=== PATIENT | female | born 1985 | race African-American/Black ===

== ENCOUNTER 2019-07-04 16:45 | Emergency (ER) | payer MEDICAID, OTHER ==
[~2019-07-04] VITALS: Ht 162.6 cm; Wt 52.2 kg
[2019-07-04 17:00] VITALS: BP 94/58
--- NOTE | 2019-07-04 17:00 | NUR ---
ED Nurse Note: Patient brought in to ER by ambulance from custodial due to low blood pressure and RLQ abdominal pain 08/05. pt aao x4 and ambulatory. skin clean and intact. cooperative but restless and moaning for RLQ severe abdominal pain. per pt, she has her apartment set up but meanwhile she is staying at custodial. no dishevel appearance noted. well groomed and clean. pt stated "I am not a homeless. it is complicated but I got my apartment set up I have paid everything. I am staying at custodial until the move in date." no acute distress noted at this time. pt is in gown and on credit associate.
--- NOTE | 2019-07-04 17:07 | Emergency Room Report ---
History of Present Illness General Chief Complaint: Abdominal Pain Source: Patient Present Illness HPI Disclaimer: Please note that this report is being documented using DRAGON technology. This can lead to erroneous entry secondary to incorrect interpretation by the dictating instrument. HPI: 33-year-old otherwise healthy female presents for evaluation of abdominal pain. Symptoms began yesterday. She noted pain in the right lower quadrant as sharp and stabbing and nonradiating. Noted nausea without vomiting. Denies diarrhea, dysuria, hematuria, vaginal bleeding, vaginal discharge. She feels fevers but has no objective temperature readings. Denies flank pain. No prior history of abdominal surgery. Denies the possibility of . LMP 4 days ago according to patient. Has not taken any medication prior to arrival. PMH: Denies PSH: Denies Allergies: Denies Social Hx: Current smoker. Allergies: Coded Allergies: No Known Allergies (Unverified , 07/04/19) Patient History Last Menstrual Period: 06/30/19 Nursing Documentation-PMH Past Medical History: No Stated History Review of Systems All Other Systems: negative except mentioned in HPI Physical Exam Vital Signs Date Time Temp Pulse Resp B/P (MAP) Pulse Ox O2 Delivery O2 Flow Rate FiO2 07/04/19 16:45 100.0 112 18 94/58 (70) 99 Room Air General: Awake and alert, appears uncomfortable, afebrile HEENT: NC/AT. EOMI. Cardiovascular: Tachycardic. S1 and S2 normal. No murmur appreciated Resp: Normal work of breathing. No cough, wheezing or crackles appreciated Abdomen: Abdomen is soft, nondistended. Significant tenderness in the right lower quadrants with palpation. No rebound. Rovsing negative. No masses appreciated. Skin: Intact. No abrasions, laceration or rash over the exposed skin MSK: Normal tone and bulk. Moving all extremities. No obvious deformity. Neuro: Awake and alert. Mentating appropriately. Back: CVA tenderness right side, negative on left Medical Decision Making Diagnostic Impression: Primary Impression: Pyelonephritis ER Course 33-year-old female presents for evaluation of 1 day worsening abdominal pain. [place] includes was not limited to appendicitis, ovarian cyst, ectopic , urinary tract infection, pyelonephritis, nephrolithiasis, cholecystitis, biliary colic, gastritis, pancreatitis, bowel obstruction. Given the patient's appearance of physical exam must rule out appendicitis. Will obtain CT scan of the abdomen pelvis, broad lab work, start IV fluids, antiemetics and pain medication. Laboratory Tests Test 07/04/19 17:00 07/04/19 18:00 Urine Color Pale yellow Urine Appearance Clear Urine pH 7 (4.5-8.0) Urine Specific [place] 1.005 (1.005-1.035) Urine Protein 1+ (NEGATIVE) H Urine Glucose (UA) Negative (NEGATIVE) Urine Ketones Negative (NEGATIVE) Urine Blood 3+ (NEGATIVE) H Urine Nitrite Positive (NEGATIVE) H Urine Bilirubin Negative (NEGATIVE) Urine Urobilinogen 4 MG/DL (0.0-1.0) H Urine Leukocyte Esterase 2+ (NEGATIVE) H Urine RBC 5-10 /HPF (0 - 2) H Urine WBC 5-10 /HPF (0 - 2) H Urine Squamous Epithelial Cells Few /LPF (NONE/OCC) Urine Bacteria Moderate /HPF (NONE) H Urine HCG, Qualitative Negative (NEGATIVE) Sodium Level 134 MMOL/L (136-145) L Potassium Level 4.2 MMOL/L (3.5-5.1) Chloride Level 102 MMOL/L (98-107) Carbon Dioxide Level 25 MMOL/L (21-32) Anion Gap 7 mmol/L (5-15) Blood Urea Nitrogen 8 mg/dL (7-18) Creatinine 1.0 MG/DL (0.55-1.30) Estimate Glomerular Filtration Rate > 60 mL/min (>60) Glucose Level 101 MG/DL (74-106) Calcium Level 8.5 MG/DL (8.5-10.1) Total Bilirubin 0.7 MG/DL (0.2-1.0) Aspartate Amino Transferase (AST) 20 U/L (15-37) Alanine Aminotransferase (ALT) 10 U/L (12-78) L Alkaline Phosphatase 48 U/L (46-116) Total Protein 6.8 G/DL (6.4-8.2) Albumin 3.1 G/DL (3.4-5.0) L Globulin 3.7 g/dL Albumin/Globulin Ratio 0.8 (1.0-2.7) L Lipase 79 U/L (73-393) White Blood Count 13.3 K/UL (4.8-10.8) H Red Blood Count 3.61 M/UL (4.20-5.40) L Hemoglobin 11.5 G/DL (12.0-16.0) L Hematocrit 32.1 % (37.0-47.0) L Mean Corpuscular Volume 89 FL (80-99) Mean Corpuscular Hemoglobin 31.9 PG (27.0-31.0) H Mean Corpuscular Hemoglobin Concent 36.0 G/DL (32.0-36.0) Red Cell Distribution Width 10.7 % (11.6-14.8) L Platelet Count 118 K/UL (150-450) L Mean Platelet Volume 7.4 FL (6.5-10.1) Neutrophils (%) (Auto) 75.1 % (45.0-75.0) H Lymphocytes (%) (Auto) 14.2 % (20.0-45.0) L Monocytes (%) (Auto) 9.8 % (1.0-10.0) Eosinophils (%) (Auto) 0.1 % (0.0-3.0) Basophils (%) (Auto) 0.7 % (0.0-2.0) CT/MRI/US Diagnostic Results CT/MRI/US Diagnostic Results : Impression Preliminary Findings Only See Final Report For Complete Findings CT ABDOMEN & PELVIS With Contrast: No mucosal inflammatory changes along the course of the GI tract. No obstruction. The appendix is not visualized however there are no secondary signs of acute appendicitis. Trace fat stranding around the right kidney. No obstructive uropathy. There is a region of low attenuation within the right upper pole which is not consistent with a simple cyst. Pyelonephritis could cause this appearance in the appropriate clinical setting. Correlate with UA. Nonobstructing stones bilaterally. Unremarkable appearance of the remainder of the solid organs. Radiologist: Fadi Marrufo MD Study ready at 19:09 and initial results transmitted at 19:24 Reevaluation Time: 20:34 Last Vital Signs Date Time Temp Pulse Resp B/P (MAP) Pulse Ox O2 Delivery O2 Flow Rate FiO2 07/04/19 16:45 100.0 112 18 94/58 (70) 99 Room Air Reevaluation Impression Lab work indicate an acute urinary tract infection and the patient was treated with 1 g of ceftriaxone. She continues to receive IV fluids. Tachycardia resolved. Patient is afebrile. She will require outpatient treatment for pyelonephritis but there is no indication of acute kidney injury. She was found hypotensive while sleeping however the patient's blood pressures have now improved after IV fluids and improved while she was more awake and moving around. She is stable for outpatient follow-up and will be discharged home. We discussed new medication regimen and need for follow-up as well as reasons to return to the emergency department. She understands and agrees with the treatment plan was discharged home. Disposition: HOME, SELF-CARE Condition: Improved Scripts Ondansetron Odt* (ZOFRAN ODT*) 4 Mg Tab.rapdis 4 MG BC EVERY 6 HOURS PRN for Nausea & Vomiting, #10 TAB 0 Refills Prov: Arthur Seo MD 07/04/19 Ciprofloxacin Hcl* (CIPROFLOXACIN HCL*) 500 Mg Tablet 500 MG ORAL Q12H for 7 Days, #14 TAB 0 Refills Prov: Arthur Seo MD 07/04/19 Arthur Seo MD Jul 04, 2019 17:07
[2019-07-04] MEDS ORDERED: Isovue-300 100ml vial INJ PRN (17:15)
[2019-07-04] MEDS ORDERED: Morphine Sulfate 4mg/ml Inj (IV USE ONLY) IVP ONE (17:15)
[2019-07-04 17:29] LABS: ANION GAP 7 mmol/L (5-15); BLOOD UREA NITROGEN 8 mg/dL (7-18); CALCIUM 8.5 MG/DL (8.5-10.1); CARBON DIOXIDE 25 MMOL/L (21-32); CHLORIDE 102 MMOL/L (98-107); POTASSIUM 4.2 MMOL/L (3.5-5.1); SODIUM 134 MMOL/L (136-145)
[2019-07-04 17:33] LABS: ALANINE AMINOTRANSFERASE 10 U/L (12-78); ALBUMIN 3.1 G/DL (3.4-5.0); ALBUMIN/GLOBULIN RATIO 0.8 (1.0-2.7); ALKALINE PHOSPHATASE 48 U/L (46-116); ASPARTATE AMINO TRANSFERASE 20 U/L (15-37); BILIRUBIN,TOTAL 0.7 MG/DL (0.2-1.0)
[2019-07-04 17:37] LABS: APPEARANCE,URINE CLEAR; BILIRUBIN, URINE NEGATIVE (NEGATIVE); COLOR,URINE PALE YELLOW; GLUCOSE, URINE (UA) NEGATIVE (NEGATIVE); KETONES,URINE NEGATIVE (NEGATIVE); LEUKOCYTE ESTERASE ,URINE 2+ (NEGATIVE); NITRITE,URINE POSITIVE (NEGATIVE); PH,URINE 7 (4.5-8.0); PROTEIN,URINE 1+ (NEGATIVE); UROBILINOGEN,URINE 4 MG/DL (0.0-1.0)
[2019-07-04 18:09] LABS: BASOPHILS % (AUTO) 0.7 % (0.0-2.0); EOSINOPHILS % (AUTO) 0.1 % (0.0-3.0); HEMATOCRIT 32.1 % (37.0-47.0); HEMOGLOBIN 11.5 G/DL (12.0-16.0); LYMPHOCYTES % (AUTO) 14.2 % (20.0-45.0); MEAN CORPUSCULAR VOLUME 89 FL (80-99); MONOCYTES % (AUTO) 9.8 % (1.0-10.0); NEUTROPHILS % (AUTO) 75.1 % (45.0-75.0); PLATELET COUNT 118 K/UL (150-450); RED BLOOD COUNT 3.61 M/UL (4.20-5.40); RED CELL DISTRIBUTION WIDTH 10.7 % (11.6-14.8); WHITE BLOOD COUNT 13.3 K/UL (4.8-10.8)
[2019-07-04] MEDS ORDERED: cefTRIAXone 1 GM in NS 55 ML IVPB ONE (18:15)
--- NOTE | 2019-07-04 18:28 | NUR ---
ED Nurse Note: pt went down for CT in stable condition.
--- NOTE | 2019-07-04 18:50 | NUR ---
ED Nurse Note: pt came back from CT scan in stable condition.
--- NOTE | 2019-07-04 18:55 | NUR ---
ED Nurse Note: pt reported improved pain level but bp 84/43mmHg reported to ERMD. 1L NS bolus initiated by ERMD's verbal order.
--- NOTE | 2019-07-04 19:05 | NUR ---
HAND-OFF: Report given to Venancio Weber RN. pt is getting NS bolus for low blood pressure. no orders to carry at this moment.
--- NOTE | 2019-07-04 19:09 | NUR ---
ED Nurse Note: received pt from jeannette escobar rn. patient sleeping in bed with nad. hypotensive 89/43; asymptomatic. iv flushed and patent.
[2019-07-04 19:10] VITALS: BP 84/43
--- NOTE | 2019-07-04 19:25 | Diagnostic Imaging Report ---
Clinical Indication: Abdominal pain Technique: No oral contrast utilized, per emergency room physician request IV administration nonionic contrast. Venous phase spiral acquisition obtained through the abdomen and pelvis. Multiplanar reconstructions were generated. Total dose length product 536.46 mGycm. CTDIvol(s) 10.99 mGy. Dose reduction achieved using automated exposure control Comparison: none Findings: When is probably a normal appendix is visualized on the coronal reconstructed images. No evidence of acute appendicitis. No evidence of diverticulosis or diverticulitis. Small bowel loops are prominent, upper limits of normal in caliber, diffusely fluid-filled. No ning small bowel distention. The distal esophagus, stomach, duodenum are unremarkable. There is generalized edema of the mesenteric and retroperitoneal fat. The right kidney demonstrates a small amount of perinephric fluid. There is heterogeneous attenuation of the lower pole There is an upper pole cyst which is slightly irregular in contour. There is a 5 mm calculus within the right lower pole collecting system. No ureteral calculi, hydronephrosis, or hydroureter demonstrated. The bladder is distended. The left kidney demonstrates a 3 mm lower pole cyst. The liver is unremarkable. The gallbladder, bile ducts, pancreas are all unremarkable. The spleen demonstrates granulomatous calcifications. The adrenals are unremarkable. No retroperitoneal or mesenteric mass or adenopathy. The uterus and ovaries are unremarkable. No pelvic mass or adenopathy. The included lung bases are clear. The bones are unremarkable. Impression: Small amount of perinephric fluid on the right. Heterogeneous parenchymal attenuation in the lower pole could indicate nephritis which could be an etiology of the fluid. Here is an upper pole cyst which is somewhat irregular so the possibility of recent cyst rupture as etiology of the fluid should also be considered. Bilateral nonobstructive intrarenal calculi More generalized edema of the mesenteric and retroperitoneal fat, nonspecific Gas and fluid-filled prominent small bowel loops, nonspecific, could indicate mild ileus or enteritis changes. This agrees with the preliminary interpretation provided overnight by [employer] teleradiology service. The CT scanner at [facility] is accredited by the [employer] and the scans are performed using protocols designed to limit radiation exposure to as low as reasonably achievable to attain images of sufficient resolution adequate for diagnostic evaluation.
[2019-07-04] MEDS ORDERED: CIPROFLOXACIN500 M2 ORAL (20:06)
[2019-07-04] MEDS ORDERED: ONDANSETRON ODT4 MG BC (20:06)
--- NOTE | 2019-07-04 20:19 | NUR ---
ED Nurse Note: assisted pt to bathroom. pt remains hypotensive 94/50 but asymptomatic. denies dizziness. ermd aware. provided pt with sandwich and juice. family at bedside.
[2019-07-04 20:34] VITALS: BP 107/53
--- NOTE | 2019-07-04 20:34 | NUR ---
ED Nurse Note: reassesed blood pressure 107/53
--- NOTE | 2019-07-04 20:40 | NUR ---
ER DISCHARGE NOTE: Patient is cleared to be discharged per ERMD, pt is aox4, on room air, with stable vital signs. accompanied by family member. pt was given dc and prescription instructions, pt was able to verbalize understanding, pt id band and iv site removed without complications. pt is able to ambulate with steady gait. pt took all belongings.
[2019-07-04 20:41] VITALS: BP 107/53
== END 2019-07-04 20:41 | disposition home or self-care (01) ==
LOC: EDBD 16:45 → EMR 19:56
DX: N12 Tubulo-interstitial nephritis, not specified as acute or chronic (principal); F17.200 Nicotine dependence, unspecified, uncomplicated
CPT/HCPCS: 36415; 74177; 80053; 81003; 81025; 83690; 85025; 87086; 87181; 96361; 96365; 96375; J0696; J2270; J2405; Q9967; S0028; Z7502; 99284

== ENCOUNTER 2019-09-22 09:48 | Emergency (ER) | payer OTHER ==
[~2019-09-22] VITALS: Ht 167.6 cm; Wt 54.4 kg
[~2019-09-22 09:48] MED LIST: CIPROFLOXACIN500 M2 ORAL; ONDANSETRON ODT4 MG BC
[2019-09-22 09:55] VITALS: BP 122/86
--- NOTE | 2019-09-22 09:59 | Emergency Room Report ---
History of Present Illness General Chief Complaint: Abdominal Pain Source: Patient, EMS Present Illness HPI Disclaimer: Please note that this report is being documented using DRAGON technology. This can lead to erroneous entry secondary to incorrect interpretation by the dictating instrument. HPI: 34-year-old female with no reported medical presents for evaluation of abdominal pain. Symptoms began early this morning approximately 1 AM and awoke her from sleep. She reports pain in the right flank in the right lower quadrant that is sharp and stabbing. Reports several episodes of nonbloody and nonbilious emesis. Denies diarrhea. Denies recent fever chills, dysuria, hematuria. She states it feels like a prior kidney stone. Approximately 1 month ago she was diagnosed with a right-sided kidney stone and had a stent placed and removed by [facility]. States this pain is very similar. Otherwise denies any change in her health. PMH: Denies PSH: Lithotripsy Allergies: Denies Social Hx: Current smoker. Denies drug or alcohol abuse Allergies: Coded Allergies: No Known Allergies (Unverified , 07/04/19) Nursing Documentation-PMH Past Medical History: No History, Except For Review of Systems All Other Systems: negative except mentioned in HPI Physical Exam Vital Signs Date Time Temp Pulse Resp B/P (MAP) Pulse Ox O2 Delivery O2 Flow Rate FiO2 09/22/19 09:39 97.5 90 18 119/78 (92) 100 Room Air General: Awake and alert, visibly uncomfortable HEENT: NC/AT. EOMI. Cardiovascular: RRR. S1 and S2 normal. No murmur appreciated Resp: Normal work of breathing. No cough, wheezing or crackles appreciated Abdomen: Abdomen is soft, nondistended. Tender palpation in the right side upper and right lower quadrant. Otherwise abdomen is soft and nontender on the left side and periumbilical region Skin: Intact. No abrasions, laceration or rash over the exposed skin MSK: Normal tone and bulk. Moving all extremities. No obvious deformity. Neuro: Awake and alert. Mentating appropriately. Back/Spine: Right-sided flank tenderness and CVA region Medical Decision Making Diagnostic Impression: Primary Impression: Nephrolithiasis Additional Impression: Hydronephrosis ER Course 34-year-old female with history of nephrolithiasis and pyelonephritis presents for evaluation of right-sided flank and abdominal pain beginning early this morning. Differential includes was not limited to pyelonephritis, urinary tract infection, ectopic , appendicitis, obstructive stone, intra- abdominal abscess, bowel obstruction. She appears uncomfortable and will require advanced imaging with noncontrast CT scan given her history of kidney stone in the past. We will also obtain broad labs and treat the patient's pain. IV fluids are started and antiemetics are ordered. Laboratory Tests Test 09/22/19 10:00 White Blood Count 7.3 K/UL (4.8-10.8) Red Blood Count 4.47 M/UL (4.20-5.40) Hemoglobin 13.4 G/DL (12.0-16.0) Hematocrit 40.9 % (37.0-47.0) Mean Corpuscular Volume 91 FL (80-99) Mean Corpuscular Hemoglobin 29.9 PG (27.0-31.0) Mean Corpuscular Hemoglobin Concent 32.7 G/DL (32.0-36.0) Red Cell Distribution Width 11.7 % (11.6-14.8) Platelet Count 265 K/UL (150-450) Mean Platelet Volume 6.3 FL (6.5-10.1) L Neutrophils (%) (Auto) 76.0 % (45.0-75.0) H Lymphocytes (%) (Auto) 16.3 % (20.0-45.0) L Monocytes (%) (Auto) 6.0 % (1.0-10.0) Eosinophils (%) (Auto) 0.9 % (0.0-3.0) Basophils (%) (Auto) 0.7 % (0.0-2.0) Urine Color Pale yellow Urine Appearance Slightly cloudy Urine pH 7 (4.5-8.0) Urine Specific [place] 1.015 (1.005-1.035) Urine Protein Negative (NEGATIVE) Urine Glucose (UA) Negative (NEGATIVE) Urine Ketones Negative (NEGATIVE) Urine Blood 1+ (NEGATIVE) H Urine Nitrite Negative (NEGATIVE) Urine Bilirubin Negative (NEGATIVE) Urine Urobilinogen Normal MG/DL (0.0-1.0) Urine Leukocyte Esterase Negative (NEGATIVE) Urine RBC 2-4 /HPF (0 - 2) H Urine WBC 2-4 /HPF (0 - 2) Urine Squamous Epithelial Cells Many /LPF (NONE/OCC) H Urine Bacteria Few /HPF (NONE) Urine HCG, Qualitative Negative (NEGATIVE) Sodium Level 139 MMOL/L (136-145) Potassium Level 4.1 MMOL/L (3.5-5.1) Chloride Level 105 MMOL/L (98-107) Carbon Dioxide Level 26 MMOL/L (21-32) Anion Gap 8 mmol/L (5-15) Blood Urea Nitrogen 12 mg/dL (7-18) Creatinine 1.0 MG/DL (0.55-1.30) Estimate Glomerular Filtration Rate > 60 mL/min (>60) Glucose Level 91 MG/DL (74-106) Calcium Level 8.8 MG/DL (8.5-10.1) Total Bilirubin 0.4 MG/DL (0.2-1.0) Aspartate Amino Transferase (AST) 15 U/L (15-37) Alanine Aminotransferase (ALT) 13 U/L (12-78) Alkaline Phosphatase 54 U/L (46-116) Total Protein 7.3 G/DL (6.4-8.2) Albumin 3.4 G/DL (3.4-5.0) Globulin 3.9 g/dL Albumin/Globulin Ratio 0.9 (1.0-2.7) L Lipase 68 U/L (73-393) L Reevaluation Time: 12:39 Last Vital Signs Date Time Temp Pulse Resp B/P (MAP) Pulse Ox O2 Delivery O2 Flow Rate FiO2 09/22/19 09:39 97.5 90 18 119/78 (92) 100 Room Air Reevaluation Impression Labs show normal renal function, no evidence of urinary tract infection, systemic illness. CT scan concerning for moderate to severe right-sided hydronephrosis with an obstructing distal right kidney stone that is 4 x 3 cm. Given the normal renal function and the small size of the stone the patient can be discharged home with Flomax and pain medication as well as antiemetics. She is tolerating solids and liquids in the emergency department. She will be instructed to return to emergency department she develops fever or worsening pain however at this time she is stable for outpatient management. She should call her urologist that did her last stent to follow-up. Discussed reasons to return to the emergency department. She understands and agrees with treatment plan. Disposition: HOME, SELF-CARE Condition: Stable Scripts Hydrocodone Bit/Acetaminophen 5-325* (NORCO 5-325*) 1 Each Tablet 1 TAB ORAL Q4H PRN for For Pain, #5 TAB 0 Refills Prov: Arthur Seo MD 09/22/19 Ibuprofen* (MOTRIN*) 600 Mg Tablet 600 MG ORAL Q8H PRN for For Pain, #30 TAB 0 Refills Prov: Arthur Seo MD 09/22/19 Tamsulosin HCl (Flomax) 0.4 Mg Cap.er.24h 0.4 MG ORAL BEDTIME for 5 Days, #5 CAP Prov: Arthur Seo MD 09/22/19 Ondansetron Odt* (ZOFRAN ODT*) 4 Mg Tab.rapdis 4 MG BC EVERY 6 HOURS PRN for Nausea & Vomiting, #10 TAB 0 Refills Prov: Arthur Seo MD 09/22/19 Arthur Seo MD Sep 22, 2019 09:59
[2019-09-22] MEDS ORDERED: Ketorolac 30mg Inj IV ONE (10:00)
[2019-09-22 10:29] LABS: BASOPHILS % (AUTO) 0.7 % (0.0-2.0); EOSINOPHILS % (AUTO) 0.9 % (0.0-3.0); HEMATOCRIT 40.9 % (37.0-47.0); HEMOGLOBIN 13.4 G/DL (12.0-16.0); LYMPHOCYTES % (AUTO) 16.3 % (20.0-45.0); MEAN CORPUSCULAR VOLUME 91 FL (80-99); PLATELET COUNT 265 K/UL (150-450); RED BLOOD COUNT 4.47 M/UL (4.20-5.40); RED CELL DISTRIBUTION WIDTH 11.7 % (11.6-14.8); WHITE BLOOD COUNT 7.3 K/UL (4.8-10.8)
[2019-09-22 10:46] LABS: APPEARANCE,URINE SLIGHTLY CLOUDY; BILIRUBIN, URINE NEGATIVE (NEGATIVE); COLOR,URINE PALE YELLOW; GLUCOSE, URINE (UA) NEGATIVE (NEGATIVE); KETONES,URINE NEGATIVE (NEGATIVE); LEUKOCYTE ESTERASE ,URINE NEGATIVE (NEGATIVE); NITRITE,URINE NEGATIVE (NEGATIVE); PH,URINE 7 (4.5-8.0); PROTEIN,URINE NEGATIVE (NEGATIVE); UROBILINOGEN,URINE NORMAL MG/DL (0.0-1.0)
[2019-09-22 10:54] LABS: ANION GAP 8 mmol/L (5-15); BLOOD UREA NITROGEN 12 mg/dL (7-18); CALCIUM 8.8 MG/DL (8.5-10.1); CARBON DIOXIDE 26 MMOL/L (21-32); CHLORIDE 105 MMOL/L (98-107); POTASSIUM 4.1 MMOL/L (3.5-5.1); SODIUM 139 MMOL/L (136-145)
[2019-09-22 10:58] LABS: ALANINE AMINOTRANSFERASE 13 U/L (12-78); ALBUMIN 3.4 G/DL (3.4-5.0); ALBUMIN/GLOBULIN RATIO 0.9 (1.0-2.7); ALKALINE PHOSPHATASE 54 U/L (46-116); ASPARTATE AMINO TRANSFERASE 15 U/L (15-37); BILIRUBIN,TOTAL 0.4 MG/DL (0.2-1.0)
[2019-09-22] MEDS ORDERED: Morphine Sulfate 4mg/ml Inj (IV USE ONLY) IVP ONE (11:30)
--- NOTE | 2019-09-22 11:59 | Diagnostic Imaging Report ---
Indication: Abdominal pain, 10 out of 10, vomiting Technique: Spiral acquisitions obtained through the abdomen and pelvis. No oral contrast utilized, per emergency room physician request No IV contrast utilized, per referring physician request.. Multiplanar reconstructions were generated. Total dose length product 567 mGycm. CTDIvol(s) 10 mGy. Dose reduction achieved using automated exposure control Comparison: 07/04/2019 Findings: There is moderate to severe right hydronephrosis. The right kidney demonstrates unusual axis rotation. There is also proximal right hydroureter. There is a 4 x 3 mm calculus in the distal right ureter, located approximately 5 cm proximal to the ureterovesical junction. There may be a smaller calculus is located immediately proximal to this. This presumably represents migration of the previously demonstrated right lower pole calculus. There are also coarse calcifications deeper in the pelvis also evident previously and presumably extra ureteral. There is a 2 mm calculus in the lower pole of the left renal collecting system. Also evident previously No left hydronephrosis, hydroureter, or ureteral calculus demonstrated. Lack of IV contrast limits assessment of the renal parenchyma. No gross renal parenchymal mass or cyst demonstrated. Lack of IV contrast limits assessment of the other solid organs. The liver demonstrates a capsular calcification. The gallbladder, bile ducts, pancreas are grossly unremarkable. Parenchymal calcifications are seen within the spleen. No retroperitoneal or mesenteric mass or adenopathy. No pelvic mass or adenopathy. There is a 4 cm cyst in the right ovary, not evident previously. No evidence of colonic diverticulosis or diverticulitis. The appendix is only questionably visualized, but there are no findings to suggest acute appendicitis. No small bowel distention. The included lung bases demonstrate a cystic space on the right. The bones are unremarkable. 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 Seo in the emergency room at the time of interpretation The CT scanner at [facility] is accredited by the [employer] and the scans are performed using protocols designed to limit radiation exposure to as low as reasonably achievable to attain images of sufficient resolution adequate for diagnostic evaluation.
[2019-09-22 12:12] VITALS: BP 133/87
[2019-09-22] MEDS ORDERED: ONDANSETRON ODT4 MG BC (13:40)
[2019-09-22] MEDS ORDERED: NORCO 5-325 TA1 EACH ORAL (13:40)
[2019-09-22] MEDS ORDERED: FLOMAX0.4 MG ORAL (13:40)
[2019-09-22] MEDS ORDERED: IBUPROFEN600 MG ORAL (13:40)
[2019-09-22 13:55] VITALS: BP 122/76
== END 2019-09-22 14:05 | disposition home or self-care (01) ==
LOC: EDBD 09:48 → EMR 10:23 → CANBEDREQ 13:43 → EMR 14:05
DX: N13.2 Hydronephrosis with renal and ureteral calculous obstruction (principal); Z98.890 Other specified postprocedural states
CPT/HCPCS: 36415; 74176; 80053; 81003; 81025; 83690; 85025; 96361; 96374; 96375; J1885; J2270; J2405; J7030; Z7502; 99284

== ENCOUNTER 2019-09-23 15:41 | Emergency (ER) | payer OTHER ==
[~2019-09-23] VITALS: Ht 162.6 cm; Wt 54.4 kg
[~2019-09-23 15:41] MED LIST changes: +FLOMAX0.4 MG ORAL; +IBUPROFEN600 MG ORAL; +NORCO 5-325 TA1 EACH ORAL
--- NOTE | 2019-09-23 16:01 | NUR ---
ED Nurse Note: Patient walked in ED from home c/o kidney stone pain. Patient was seen here in ED yesterday and patient states she did not get her prescription medications because pharmacy was closed. Patient is aox4, c/o pain 08/05, crying. PA at bedside. Will continue to monitor.
[2019-09-23 16:04] VITALS: BP 130/85
[2019-09-23] MEDS ORDERED: Ketorolac 30mg Inj IV ONE (16:15)
[2019-09-23] MEDS ORDERED: Tamsulosin 0.4mg cap ORAL ONE (16:15)
--- NOTE | 2019-09-23 16:25 | NUR ---
ED Nurse Note: IV access established, patient tolerated well. IV fluids infusing at this time. Will continue to monitor.
--- NOTE | 2019-09-23 16:34 | NUR ---
ED Nurse Note: ERMD at bedside.
--- NOTE | 2019-09-23 16:55 | NUR ---
ER DISCHARGE NOTE: Patient is cleared to be discharged per ERMD, pt is aox4, on room air, with stable vital signs. pt was given dc and prescription instructions, pt was able to verbalize understanding, pt id band and iv site removed without complications. pt is able to ambulate with steady gait. pt took all belongings.
[2019-09-23 17:10] VITALS: BP 125/78
--- NOTE | 2019-09-23 19:44 | Emergency Room Report ---
History of Present Illness General Chief Complaint: Pain Source: Patient Present Illness HPI 34-year-old female presents to the emergency department complaining of 10 out of 10 severity right flank pain due to kidney stone that she was diagnosed with yesterday here in the ER. Patient reports she has had persistent pain and she has been unable to fill her prescriptions because the pharmacy was closed yesterday and today. Patient denies taking any ssco-kty-ylemnjj medications for her symptoms. Patient denies changes in character to the pain that she was experiencing yesterday. She reports decreased appetite but denies nausea vomiting. She denies fevers or chills. Patient reports she is urinating. She denies any aggravating or relieving factors at this time. Allergies: Coded Allergies: No Known Allergies (Unverified , 07/04/19) Patient History Past Medical History: see triage record Past Surgical History: none Pertinent Family History: none Last Menstrual Period: 11-8 Now: No Reviewed Nursing Documentation: PMH: Agreed; PSxH: Agreed Nursing Documentation-PMH Past Medical History: No History, Except For Review of Systems All Other Systems: negative except mentioned in HPI Physical Exam Vital Signs Date Time Temp Pulse Resp B/P (MAP) Pulse Ox O2 Delivery O2 Flow Rate FiO2 09/23/19 15:44 97.7 94 22 130/85 (100) 98 Room Air Sp02 EP Interpretation: reviewed, normal General Appearance: alert, GCS 15, non-toxic, mild distress Head: normocephalic, atraumatic Eyes: bilateral eye normal inspection, bilateral eye PERRL ENT: hearing grossly normal, normal voice Neck: full range of motion Respiratory: lungs clear, normal breath sounds, speaking full sentences Cardiovascular #1: regular rate, rhythm Gastrointestinal: normal bowel sounds, non tender, soft, non-distended, no guarding Genitourinary: normal inspection, no CVA tenderness Musculoskeletal: normal range of motion, gait/station normal, non-tender Neurologic: alert, motor strength/tone normal, oriented x3, sensory intact, responsive, speech normal Psychiatric: judgement/insight normal, anxious - Pt. refuses to provide much detail to answers and is very hypervigilant requesting only to speak with the doctor she had yesterday. Skin: no rash Medical Decision Making PA Attestation Dr. Seo is my supervising Physician whom patient management has been discussed with. Diagnostic Impression: Primary Impression: Renal calculus, right ER Course 34-year-old female presents to the emergency department complaining of 10 out of 10 severity right flank pain due to kidney stone that she was diagnosed with yesterday here in the ER. Patient reports she has had persistent pain and she has been unable to fill her prescriptions because the pharmacy was closed yesterday and today. Patient denies taking any tnxe-yai-xbgldff medications for her symptoms. Patient denies changes in character to the pain that she was experiencing yesterday. She reports decreased appetite but denies nausea vomiting. She denies fevers or chills. Patient reports she is urinating. She denies any aggravating or relieving factors at this time. Ddx considered but are not limited to Diverticulitis, acute appy, diarrhea,UC, PUD, GE, pancreatitis, gallstone, kidney stone, pyelonephritis, UTI, obstruction. Vital signs: are WNL, pt. is afebrile H&PE are most consistent with renal colic due to non-compliance with medications / did not fill rx's. ORDERS: -none required at this time. reviewed imaging performed less than 24 hours ago which showed 4cm stone in the right ureter and some hydronephrosis. ED INTERVENTIONS: -- 1000NS --Toradol IV -Flomax po Attending physician saw pt. yesterday and went bedside to address any pt. concerns and answer patients. questions. Local pharmacies that are open 24-hours and specifically today ( ) were identified and pt. was given the address, phone number and a map where she can have her rx's filled. Rx's from yesterday were reprinted and given to pt. to take with her to the open 24-hour pharmacy of her choice. -I do not identify an emergent condition at this time. With current presentation , pt. is stable for close outpatient follow up and conservative treatment. D/ w pt. to return promptly to ED with worsening or new symptoms.- Pt. verbalizes' understanding and agreement with proposed treatment plan which was d/w attending physician at the bedside. DISCHARGE: At this time pt. is stable for d/c to home. Will provide printed patient care instructions, and any necessary prescriptions. Care plan and follow up instructions have been discussed with the patient prior to discharge. Last Vital Signs Date Time Temp Pulse Resp B/P (MAP) Pulse Ox O2 Delivery O2 Flow Rate FiO2 09/23/19 17:10 97.8 82 22 125/78 99 Room Air Disposition: HOME, SELF-CARE Condition: Stable Patient Instructions: Kidney Stones, Lfyw-ny-Nsyn, Kidney Stones Additional Instructions: ~ ~ An emergent medical condition has not been identified based on this patients presentation, exam and any necessary testing/imaging. The chart from yesterday's ED visit was also reviewed. The patient is determined to be stable for outpatient follow-up and management of symptoms by a primary care provider. [facility] 24 hour pharmacy is open today [address] [id number] Take medications as directed. Do not drink alcohol, drive, or operate heavy machinery while taking [place] as this may cause drowsiness. Follow up with a Primary Care Provider in 3-5 days, even if your symptoms have resolved. --Please review list of primary care clinics, if you do not already have a primary care provider Return sooner to ED if new symptoms occur, or current symptoms become worse. - Please note that this Emergency Department Report was dictated using [employer] support specialist technology software, occasionally this can lead to erroneous entry secondary to interpretation by the dictation equipment. Kaylyn Domínguez Sep 23, 2019 19:44
== END 2019-09-23 16:55 | disposition home or self-care (01) ==
LOC: EMR 16:08
DX: N20.0 Calculus of kidney (principal)
CPT/HCPCS: 96361; 96374; J1885; Z7502; 99284